=== PATIENT | female | born 2000 | race Caucasian/White ===

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

== ENCOUNTER 2022-04-14 17:19 | Emergency (ER) | payer OTHER ==
[~2022-04-14] VITALS: Ht 162.6 cm; Wt 85.7 kg
[~2022-04-14 17:19] MED LIST: SULF-58 PO
[2022-04-14 17:30] VITALS: BP 121/67
--- NOTE | 2022-04-14 17:30 | NUR ---
22 y/o female, c/o left wrist for 1 week, pt states she frequently uses her hands at work and thinks she may have overexerted or injured herself. 10/0 pain at this time. pmh: iron deficiency anemia allergy: penicillin med: ibuprofen
[2022-04-14] MEDS ORDERED: IBUP-2213 PO (18:28)
--- NOTE | 2022-04-14 18:51 | NUR ---
PT PACED IN LEFT VELCRO THUMB SPICA SPLINT, CMS WNL BEFORE AND AFTER. PA AND RN NOTIFIED.
[2022-04-14 18:59] VITALS: BP 121/67
--- NOTE | 2022-04-14 18:59 | NUR ---
Patient discharged with v/s stable. Written and verbal after care instructions ABOUT WRIST SPRAIN AND DE QUERVAIN'S TENOSYNOVITIS given and explained. Patient alert, oriented and verbalized understanding of instructions. Ambulatory with steady gait. All questions addressed prior to discharge. ID band removed. Patient advised to follow up with PMD. Rx of IBUPROFEN given. Patient educated on indication of medication including possible reaction and side effects. Opportunity to ask questions provided and answered.
== END 2022-04-14 18:59 | disposition home or self-care (01) ==
LOC: MED 17:19
DX: S66.912A Strain of unspecified muscle, fascia and tendon at wrist and hand level, left hand, initial encounter (principal); R03.0 Elevated blood-pressure reading, without diagnosis of hypertension; X58.XXXA Exposure to other specified factors, initial encounter; Y93.89 Activity, other specified; Y92.89 Other specified places as the place of occurrence of the external cause; Y99.8 Other external cause status
CPT/HCPCS: 99283

== ENCOUNTER 2023-03-26 22:59 | Emergency (ER) | payer OTHER ==
[~2023-03-26] VITALS: Ht 165.1 cm; Wt 87.1 kg
[~2023-03-26 22:59] MED LIST changes: +IBUP-2213 PO
[2023-03-26 23:13] VITALS: BP 119/88; PULSE 67; RESP 18; TEMP 97.8; O2SAT 98
[2023-03-27] MEDS ORDERED: IBUP-2213 PO (00:27)
[2023-03-27] MEDS ORDERED: DOXY-690 PO (00:27)
== END 2023-03-27 01:00 | disposition home or self-care (01) ==
LOC: MED 22:59
DX: S61.432A Puncture wound without foreign body of left hand, initial encounter (principal); S61.431A Puncture wound without foreign body of right hand, initial encounter; W55.01XA Bitten by cat, initial encounter; Y93.89 Activity, other specified; Y92.89 Other specified places as the place of occurrence of the external cause; Y99.8 Other external cause status
CPT/HCPCS: 90471; 90715; 99283